=== PATIENT | female | born 1950 | race Caucasian/White ===

== ENCOUNTER 2018-07-28 15:32 | Outpatient (CLI) | payer MEDICARE, OTHER ==
--- NOTE | 2018-07-28 17:39 | MRI ---
PRE AND POSTCONTRAST ENHANCED MRI IMAGES OF BRAIN 07/28/18 HISTORY: Right sided weakness, R53.1. Multiplanar and multisequence pre and postcontrast enhanced MRI images of the brain obtained. Images demonstrate diffuse cortical atrophy and deep white matter ischemic changes. No evidence of abnormal areas of intracranial enhancement seen. There is a tiny area of right centrum semiovale diffusion restriction compatible with tiny area of ac [place] infarction in the white matter of the right frontoparietal region. No other areas of acute stroke s seen. No other intracranial masses or lesions noted. IMPRESSION: 1. Extensive cortical atrophy and deep white matter ischemic changes. 2. 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 POS: [facility]
== END 2018-07-28 15:33 | disposition home or self-care (01) ==
LOC: SCSMRI 15:32
PROVIDERS: ATTEND Family Medicine
DX: R53.1 Weakness (principal); I63.9 Cerebral infarction, unspecified; G31.9 Degenerative disease of nervous system, unspecified
CPT/HCPCS: 70553

== ENCOUNTER 2019-02-09 10:10 | Outpatient (CLI) | payer MEDICARE, OTHER ==
--- NOTE | 2019-02-09 15:15 | NM ---
NUCLEAR MEDICINE Juan BRAIN SPECT: DATE: 02/09/2019. HISTORY: "Ataxia unspecified" in a 68-year-old female. TECHNIQUE: Premedication with 130 mg of potassium iodide p.o. 1 hour prior to injection of radiopharmaceutical. 4.5 mCi of I-123 Ioflupane injected IV. 3 hours later, SPECT images of brain obtained in axial plane. FINDINGS: There is symmetrical uptake in the bilateral caudate nuclei and putamina. IMPRESSION: Normal scan. Negative for Parkinsonism. POS: [facility]
== END 2019-02-09 10:11 | disposition home or self-care (01) ==
LOC: NM 10:10
PROVIDERS: ATTEND Psychiatry & Neurology Neurology
DX: R27.0 Ataxia, unspecified (principal)
CPT/HCPCS: 78607; A9584; 80053; 83036; 84439; 84443; 85025